=== PATIENT | female | born 1960 | race Caucasian/White ===

== ENCOUNTER → 2018-02-18 | Outpatient (CLI) | payer BC ==
--- NOTE | 2018-02-20 10:48 | MM ---
Reason for exam: screening (asymptomatic). Last mammogram was performed 1 year and 4 months ago. History: Patient is postmenopausal. Benign right US cyst aspiration of the right breast, July 13, 2011. Took hormonal contraceptives for 9 years beginning at age 18. Took estrogen for 2 years 6 months beginning at age 48. Took progesterone for 2 years 6 months beginning at age 48. Physical Findings: A clinical breast exam by your physician is recommended on an annual basis and results should be correlated with mammographic findings. MG Screening Mammo w CAD Bilateral CC and MLO view(s) were taken. Prior study comparison: October 21, 2016, bilateral MG diagnostic mammo w CAD [facility]. April 30, 2016, bilateral MG diagnostic mammo w CAD [facility]. There are scattered fibroglandular densities. There is no discrete abnormality. No significant changes when compared with prior studies. ASSESSMENT: Negative, BI-RAD 1 RECOMMENDATION: Routine screening mammogram of both breasts in 1 year.
== END | disposition home or self-care (01) ==
LOC: RADMAMWWP 11:04
PROVIDERS: ATTEND Internal Medicine
DX: Z12.31 Encounter for screening mammogram for malignant neoplasm of breast (principal)
CPT/HCPCS: 77067

== ENCOUNTER → 2019-11-30 | Outpatient (CLI) | payer BC ==
--- NOTE | 2019-11-30 12:35 | XR ---
EXAMINATION TYPE: XR chest 2V DATE OF EXAM: 11/30/2019 COMPARISON: 11/16/2013 HISTORY: Fever, cough, and congestion TECHNIQUE: Frontal and lateral views of the chest are obtained. FINDINGS: Thoracolumbar fusion device is partially visualized. Slight flattening of the diaphragms o n the lateral view suggests underlying COPD. No focal consolidation, pleural effusion or pneumothorax . Cardiomediastinal silhouette is within normal limits. Osseous structures appear intact. IMPRESSION: No acute cardiopulmonary process. Underlying COPD.
== END | disposition home or self-care (01) ==
LOC: RADXRYALE 10:23
PROVIDERS: ATTEND Internal Medicine
DX: J44.9 Chronic obstructive pulmonary disease, unspecified (principal)
CPT/HCPCS: 71046

== ENCOUNTER → 2021-11-06 | Outpatient (CLI) | payer BC ==
--- NOTE | 2021-11-09 11:45 | MM ---
Reason for exam: screening (asymptomatic). Last mammogram was performed 3 years and 9 months ago. History: Patient is postmenopausal. Benign right US cyst aspiration of the right breast, July 13, 2011. Took hormonal contraceptives for 9 years beginning at age 18. Took estrogen for 2 years 6 months beginning at age 48. Took progesterone for 2 years 6 months beginning at age 48. Physical Findings: A clinical breast exam by your physician is recommended on an annual basis and results should be correlated with mammographic findings. MG Screening Mammo w CAD Bilateral CC and MLO view(s) were taken. Prior study comparison: February 18, 2018, bilateral MG screening mammo w CAD. October 21, 2016, bilateral MG diagnostic mammo w CAD [facility]. There are scattered fibroglandular densities. No significant changes when compared with prior studies. ASSESSMENT: Benign, BI-RAD 2 RECOMMENDATION: Routine screening mammogram of both breasts in 1 year.
== END | disposition home or self-care (01) ==
LOC: RADMAMWWP 08:16
PROVIDERS: ATTEND Internal Medicine
DX: Z12.31 Encounter for screening mammogram for malignant neoplasm of breast (principal); Z78.0 Asymptomatic menopausal state
CPT/HCPCS: 77067

== ENCOUNTER → 2022-11-09 | Outpatient (CLI) | payer BC ==
--- NOTE | 2022-11-10 07:47 | MM ---
Reason for Exam: Screening (asymptomatic). Last screening mammogram was performed 12 month(s) ago. Patient History: Menarche at age 16. First Full-Term at age 25. Postmenopausal. Estrogen for 2 years, 6 months, from age 48 until age 55. Progesterone for 2 years, 6 months, from age 48 until age 55. Hormonal Contraceptives for 9 years from age 18 until age 27. 07/13/2011, Benign Cyst Aspiration on the right side. Risk Values: Elisa 5 year model risk: 1.2%. NCI Lifetime model risk: 5.8%. Prior Study Comparison: 10/21/2016 Bilateral Diagnostic Mammogram, [facility]. 02/18/2018 Bilateral Screening Mammogram, [facility]. 11/06/2021 Bilateral Screening Mammogram, [facility]. Tissue Density: There are scattered fibroglandular densities. Findings: Analyzed By CAD. There is no suspicious group of microcalcifications or new suspicious mass in either breast. Overall Assessment: Negative, BI-RAD 1 Management: Screening Mammogram of both breasts in 1 year. A clinical breast exam by your physician is recommended on an annual basis and results should be correlated with mammographic findings. [facility] will attempt to contact patient to return for supplemental views and ultrasound if indicated. Electronically signed and approved by: Jose Nicole DO
== END | disposition home or self-care (01) ==
LOC: RADMAMWWP 07:20
PROVIDERS: ATTEND Internal Medicine
DX: Z12.31 Encounter for screening mammogram for malignant neoplasm of breast (principal); Z78.0 Asymptomatic menopausal state
CPT/HCPCS: 77067

== ENCOUNTER → 2024-07-23 | Outpatient (CLI) | payer BC ==
[2024-07-24 11:33] LABS: Alt. alternata IgE Class CLASS 0/1; Alternaria alternata IgE 0.25 kU/L (<0.10); Asperg. fumagatus IgE <0.10 kU/L (<0.10); Asperg. fumagatus IgE Class CLASS 0; Bermuda Grass IgE <0.10 kU/L (<0.10); Birch(Com.Silvr) IgE 0.34 kU/L (<0.10); Birch(Com.Silvr) IgE Class CLASS 0/1; Cat Epith & Dander IgE <0.10 kU/L (<0.10); Cat Epith & Dander IgE Class CLASS 0; Clad herbarum IgE <0.10 kU/L (<0.10); Clad herbarum IgE Class CLASS 0; Cockroach IgE <0.10 kU/L (<0.10); Dermato. Pteronyssinus Class CLASS 2; Dermato. Pteronyssinus IgE 1.35 kU/L (<0.10); Dermato. farinae IgE Class CLASS 2; Dog Dander IgE <0.10 kU/L (<0.10); Elm IgE 0.21 kU/L (<0.10); Maple (Box Elder) IgE 0.64 kU/L (<0.10); Maple (Box Elder) IgE Class CLASS 1; Mountain Cedar IgE 0.17 kU/L (<0.10); Mountain Cedar IgE Class CLASS 0/1; Mouse Urine IgE Class CLASS 0; Mouse Urine Proteins,IgE <0.10 kU/L (<0.10); Nettle IgE <0.10 kU/L (<0.10); Nettle IgE Class CLASS 0; Oak IgE 0.31 kU/L (<0.10); Penicillium chrysogenum IgE <0.10 kU/L (<0.10); Penicillium chrysogenum IgE Cl CLASS 0; Rough Marshelder IgE 0.14 kU/L (<0.10); Rough Marshelder IgE Class CLASS 0/1; Timothy Grass IgE 0.25 kU/L (<0.10); Timothy Grass IgE Class CLASS 0/1; White Ash IgE Class CLASS 2
== END | disposition home or self-care (01) ==
LOC: LABWHC1 09:57
PROVIDERS: ATTEND Internal Medicine Critical Care Medicine
DX: J30.9 Allergic rhinitis, unspecified (principal)
CPT/HCPCS: 36415; 82785; 85008; 86003

== ENCOUNTER → 2024-09-05 | Outpatient (CLI) | payer BC ==
--- NOTE | 2024-09-06 10:14 | MM ---
Reason for Exam: Screening (asymptomatic). Last mammogram was performed 1 year(s) and 10 month(s) ago. Patient History: Menarche at age 16. First Full-Term at age 25. Postmenopausal. Estrogen for 2 years, 6 months, from age 48 until age 55. Progesterone for 2 years, 6 months, from age 48 until age 55. Hormonal Contraceptives for 9 years from age 18 until age 27. 07/13/2011, Benign Cyst Aspiration on the right side. Risk Values: Elisa 5 year model risk: 1.3%. NCI Lifetime model risk: 5.5%. Prior Study Comparison: 02/18/2018 Bilateral Screening Mammogram, [facility]. 11/06/2021 Bilateral Screening Mammogram, [facility]. 11/09/2022 Bilateral MG screening mammo w CAD, [facility]. Tissue Density: The breasts are heterogeneously dense, which may obscure small masses. Findings: Analyzed By CAD. There is no suspicious group of microcalcifications or new suspicious mass in either breast. Overall Assessment: Negative, BI-RAD 1 Management: Screening Mammogram of both breasts in 1 year. . Patient should continue monthly self-breast exams. A clinical breast exam by your physician is recommended on an annual basis. This exam should not preclude additional follow-up of suspicious palpable abnormalities. Note on Elisa scores and lifetime risk: 1. A Elisa score greater than 3% is considered moderate risk. If this is the case, consider specialist referral to assess eligibility for a risk reducing agent. 2. If overall lifetime risk for the development of breast cancer is 20% or higher, the patient may qualify for future screening with alternating mammogram and breast MRI. [facility], , 09/06/2024 10:11 AM. Electronically signed and approved by: Spencer Combs M.D. [facility]
== END | disposition home or self-care (01) ==
LOC: RADMAMWWP 06:54
PROVIDERS: ATTEND Internal Medicine
CPT/HCPCS: 77067